=== PATIENT | female | born 1960 | race Caucasian/White ===

== ENCOUNTER 2019-11-18 08:04 | Outpatient (CLI) | payer OTHER | END 2019-11-18 08:05 | disposition home or self-care (01) | LOC: SONOGRAMA 08:04 | DX: E04.1 Nontoxic single thyroid nodule (principal) ==

== ENCOUNTER → 2021-04-23 | Day surgery (SDC) | payer OTHER | END | disposition home or self-care (01) | LOC: ADM 04-20 15:30 → AMB-ENDOS 06:00 | PROVIDERS: ATTEND Surgery | DX: D12.3 Benign neoplasm of transverse colon (principal); D12.5 Benign neoplasm of sigmoid colon; D17.5 Benign lipomatous neoplasm of intra-abdominal organs; K64.8 Other hemorrhoids; Z20.822 Contact with and (suspected) exposure to COVID-19 ==